=== PATIENT | male | born 1985 | race Asian ===

== ENCOUNTER 2017-09-15 15:51 | Emergency (ER) | payer OTHER ==
[~2017-09-15] VITALS: Ht 182.9 cm; Wt 84.0 kg
[2017-09-15 16:01] VITALS: BP 137/81; PULSE 67; RESP 18; TEMP 98.3; O2SAT 99
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
[2017-09-15 16:13] VITALS: O2SAT 99
[2017-09-15] MEDS ORDERED: SODIUM CHLORIDE 0.9% FLUSH 10 ML FLUSH IVF PRN (16:15)
[2017-09-15 16:56] LABS: AUTOMATED NEUTROPHIL # 6.5 TH/MM3 (1.8-7.7); BASOPHIL % 0.4 % (0.0-2.0); EOSINOPHIL # 0.1 TH/MM3 (0-0.4); EOSINOPHIL % 1.1 % (0.0-4.0); HEMOGLOBIN 17.5 GM/DL (13.0-17.0); LYMPH % 19.7 % (9.0-44.0); LYMPHOCYTE # 1.8 TH/MM3 (1.0-4.8); MEAN CELL VOLUME 87.6 FL (80.0-100.0); MEAN CORPUSCULAR HEMOGLOBIN 31.9 PG (27.0-34.0); MEAN PLATELET VOLUME 6.4 FL (7.0-11.0); MONO % 5.5 % (0.0-8.0); MONOCYTE # 0.5 TH/MM3 (0-0.9); NEUT % 73.3 % (16.0-70.0); PLATELET COUNT 260 TH/MM3 (150-450); RED BLOOD COUNT 5.47 MIL/MM3 (4.50-5.90); RED CELL DISTRIBUTION WIDTH 12.9 % (11.6-17.2); WHITE BLOOD COUNT 8.9 TH/MM3 (4.0-11.0)
[2017-09-15 17:00] LABS: MEAN CORPUSCULAR HGB CONC 36.4 % (32.0-36.0)
[2017-09-15] MEDS ORDERED: IOHEXOL 350 MG/ML 10 ML VIAL (for RAD DIAG) IVCONTRAST ONE (17:03)
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
[2017-09-15] MEDS ORDERED: BACL20TA PO (17:53)
[2017-09-15] MEDS ORDERED: KETO10 PO (17:53)
== END 2017-09-15 18:37 | disposition home or self-care (01) ==
LOC: NEPC 15:51
DX: S01.81XA Laceration without foreign body of other part of head, initial encounter (principal); S91.012A Laceration without foreign body, left ankle, initial encounter; S50.812A Abrasion of left forearm, initial encounter; S50.811A Abrasion of right forearm, initial encounter; S20.211A Contusion of right front wall of thorax, initial encounter; S20.222A Contusion of left back wall of thorax, initial encounter; S20.221A Contusion of right back wall of thorax, initial encounter; V95.9XXA Unspecified aircraft accident injuring occupant, initial encounter; Y93.89 Activity, other specified
CPT/HCPCS: 12002; 70450; 71260; 72125; 74177; 80048; 85025; 99284; Q9967